=== PATIENT | female | born 1945 | race African-American/Black ===

== ENCOUNTER → 2019-08-27 | Outpatient (CLI) | payer MEDICARE, BC, OTHER ==
[2016-07-12 22:07] VITALS: BP 218/91
--- NOTE | 2019-08-27 15:28 | KCIC ---
EXAM: Head and cervical spine CT without contrast. HISTORY: Pain. Fall. TECHNIQUE: Computed tomographic images of the head and cervical spine were obtained without contrast. *One or more of the following individualized dose reduction techniques were utilized for this examination: 1. Automated exposure control. 2. Adjustment of the mA and/or kV according to patient size. 3. Use of iterative reconstruction technique. COMPARISON: 03/04/2015. FINDINGS: Head: There is no acute or subacute hemorrhage. There is no mass effect or midline shift. There is no hydrocephalus. There is mild age-appropriate cerebral volume loss. There are subtle areas of hypodensity within the cerebral white matter, likely due to chronic small vessel disease. There is evidence of lens surgery. The visualized paranasal sinuses are unremarkable. There is fluid within left mastoid air cells and middle ear. No suspicious calvarial lesion is seen. Cervical spine: There is minimal anterolisthesis of C7 on T1. Vertebral lockhart are normal in height and the disc spaces are preserved. There is calcification within the disc spaces as well as protrusion and extruded disc material, described in detail below. There is no suspicious osseous lesion. There is a heterogeneous thyroid containing multiple nodules. At C2-C3, there is a posterior central disc protrusion with 5 mm superior 2 mm inferior extrusion superimposed on a disc bulge. There is no stenosis. At C3-C4, there is a posterior central disc protrusion with prominent superior and 4 mm inferior extrusion superimposed on a disc bulge. There is no stenosis. At C4-C5, there is a tiny shallow posterior central disc protrusion superimposed on a disc bulge. There is minimal right uncovertebral arthropathy. There is no stenosis. At C5-C6, there is a posterior central disc protrusion with 3 mm inferior extrusion. There is slight ossification along the right dorsal thecal sac. There is no stenosis. At C6-C7, there is a disc bulge. There is no stenosis. IMPRESSION: 1. 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 This includes multiple disc protrusions and extrusions. No significant stenosis is seen. 2. No acute intracranial finding. There is mild age-appropriate cerebral volume loss and there are areas of hypodensity due to chronic small vessel disease. 3. Heterogeneous thyroid containing multiple small nodules. This can be better assessed with a thyroid sonogram. 4. Left mastoid and middle ear fluid suggesting the sequela of otomastoiditis. Electronically signed by: Carmen Driver MD (08/27/2019 3:25 PM) [id number]
== END | disposition home or self-care (01) ==
LOC: KCIC CT 14:11
PROVIDERS: ATTEND Physical Medicine & Rehabilitation
DX: M50.21 Other cervical disc displacement, high cervical region (principal); M47.812 Spondylosis without myelopathy or radiculopathy, cervical region; E04.2 Nontoxic multinodular goiter; H93.13 Tinnitus, bilateral
CPT/HCPCS: 70450; 72125